=== PATIENT | female | born 1955 | race Caucasian/White ===

== ENCOUNTER 2017-03-21 09:57 | Outpatient (CLI) | payer BC, OTHER ==
[2017-03-21 11:19] LABS: BASOPHILS # (AUTO) 0.1 K/uL (0.0-8.0); BASOPHILS % (AUTO) 0.5 % (0.0-2.0); EOSINOPHILS # (AUTO) 0.2 K/uL (0.0-0.7); EOSINOPHILS % (AUTO) 1.6 % (0.0-7.0); HEMATOCRIT 37.8 % (37-47); HEMOGLOBIN 12.5 G/DL (12.0-16.0); LYMPHOCYTES # (AUTO) 3.4 K/UL (0.8-4.8); LYMPHOCYTES % (AUTO) 29.3 % (20.5-51.5); MEAN CORPUSCULAR HEMOGLOBIN 31.2 UUG (27.0-31.0); MEAN CORPUSCULAR HGB CONC 33 g/dL (32.0-37.0); MEAN CORPUSCULAR VOLUME 94.2 FL (81.0-99.0); NEUTROPHILS # (AUTO) 6.9 K/UL (1.8-8.9); NEUTROPHILS % (AUTO) 59.6 % (38.5-71.5); PLATELET COUNT (AUTO) 281 K/UL (150-450); RED BLOOD CELL COUNT(AUTO) 4.01 MIL/UL (4.2-5.4); WHITE BLOOD COUNT (AUTO) 11.6 K/UL (4.0-11.2)
[2017-03-21 11:50] LABS: THYROID STIMULATING HORMONE 1.134 mIU/mL (0.358-3.740)
[2017-03-21 12:07] LABS: BILIRUBIN,TOTAL 0.5 mg/dL (0.2-1.0); POTASSIUM 3.8 mmol/L (3.5-5.1); TOTAL PROTEIN, SERUM 7.8 g/dL (6.4-8.2)
[2017-03-22 08:06] LABS: FOLLICLE STIMULATION HORMONE 41.4 mIU/mL (.); TRIIODOTHYRONINE, FREE 2.7 pg/mL (2.0-4.4)
[2017-03-22 13:09] LABS: CANCER AG, 125 5.4 U/mL (0.0-38.1); CARBOHYDRATE ANTIGEN, 19-9 6 U/mL (0-35)
[2017-03-23 02:06] LABS: VIT D, 25-HYDROXY 29.9 ng/mL (30.0-100.0)
== END 2017-03-21 23:59 | disposition home or self-care (01) ==
LOC: LAB 09:57
PROVIDERS: ATTEND Obstetrics & Gynecology
DX: N95.9 Unspecified menopausal and perimenopausal disorder (principal); I10 Essential (primary) hypertension
CPT/HCPCS: 36415; 82306; 83001; 83002; 84443; 84481; 85025; 86301; 86677

== ENCOUNTER 2017-04-10 08:12 | Outpatient (CLI) | payer BC, OTHER ==
[2017-04-11 13:05] LABS: *OCCULT BLOOD STOOL NEGATIVE (NEGATIVE)
== END 2017-04-10 23:59 | disposition home or self-care (01) ==
LOC: LAB 08:12
PROVIDERS: ATTEND Internal Medicine Cardiovascular Disease
DX: I10 Essential (primary) hypertension (principal)
CPT/HCPCS: 36415

== ENCOUNTER 2017-06-07 12:11 | Outpatient (CLI) | payer BC, OTHER | END 2017-06-07 23:59 | disposition home or self-care (01) | LOC: RAD 12:11 | DX: M51.37 Other intervertebral disc degeneration, lumbosacral region (principal); M43.16 Spondylolisthesis, lumbar region; M12.88 Other specific arthropathies, not elsewhere classified, other specified site; M48.06 Spinal stenosis, lumbar region; M48.07 Spinal stenosis, lumbosacral region; I70.0 Atherosclerosis of aorta; I51.7 Cardiomegaly; M47.894 Other spondylosis, thoracic region | CPT/HCPCS: 71020; 72110 ==

== ENCOUNTER 2017-06-24 15:30 | Emergency (ER) | payer BC, OTHER ==
[~2017-06-24] VITALS: Ht 162.6 cm; Wt 68.0 kg
--- NOTE | 2017-06-24 16:16 | NUR ---
Patient discharged to home in stable conditon. Written and verbal after care instructions given. Patient verbalizes understanding of instructions.
== END 2017-06-24 16:19 | disposition home or self-care (01) ==
LOC: ER 15:31
DX: M71.21 Synovial cyst of popliteal space [Baker], right knee (principal); I10 Essential (primary) hypertension; K21.9 Gastro-esophageal reflux disease without esophagitis
CPT/HCPCS: A4663

== ENCOUNTER 2017-07-26 11:50 | Outpatient (CLI) | payer BC, OTHER | END 2017-07-26 23:59 | disposition home or self-care (01) | LOC: LAB 11:50 → XRAY 23:59 | PROVIDERS: ATTEND Internal Medicine | DX: M25.561 Pain in right knee (principal); M25.562 Pain in left knee ==

== ENCOUNTER 2017-08-02 07:34 | Outpatient (CLI) | payer BC, OTHER ==
[2017-08-02 08:15] LABS: BASOPHILS % (AUTO) 0.4 % (0.0-2.0); EOSINOPHILS # (AUTO) 0.2 K/uL (0.0-0.7); EOSINOPHILS % (AUTO) 2.2 % (0.0-7.0); HEMATOCRIT 39.6 % (31.2-41.9); HEMOGLOBIN 14.2 g/dL (10.9-14.3); LYMPHOCYTES # (AUTO) 3.8 K/uL (20.0-40.0); LYMPHOCYTES % (AUTO) 41.6 % (20.5-51.5); MEAN CORPUSCULAR HGB CONC 36 g/dL (32.3-35.6); MEAN CORPUSCULAR VOLUME 91.8 fL (75.5-95.3); MONOCYTES # (AUTO) 0.6 K/uL (2.0-10.0); NEUTROPHILS # (AUTO) 4.5 K/uL (1.8-8.9); NEUTROPHILS % (AUTO) 48.8 % (38.5-71.5); PLATELET COUNT (AUTO) 272 K/uL (179-408); RED BLOOD CELL COUNT(AUTO) 4.31 MIL/uL (3.63-4.92); WHITE BLOOD COUNT (AUTO) 9.2 K/uL (3.8-11.8)
[2017-08-02 08:37] LABS: BILIRUBIN,TOTAL 0.4 mg/dL (0.2-1.0); CREATININE 0.5 mg/dL (0.6-1.3); POTASSIUM 3.9 mmol/L (3.5-5.1); TOTAL PROTEIN, SERUM 7.3 g/dL (6.4-8.2)
[2017-08-02 09:09] LABS: THYROID STIMULATING HORMONE 1.611 mIU/mL (0.358-3.740)
[2017-08-02 09:26] LABS: *RHEUMATOID FACTOR SCREEN NEGATIVE (NEGATIVE)
[2017-08-03 05:19] LABS: VIT D, 25-HYDROXY 29.5 ng/mL (30.0-100.0)
[2017-08-03 14:06] LABS: *SJOGREN'S ANTI-SS-A <0.2 AI (0.0-0.9); *SJOGREN'S ANTI-SS-B <0.2 AI (0.0-0.9); *SMITH ANTIBODIES <0.2 AI (0.0-0.9); ANTI-DNA(DS) AB, QN 15 IU/mL (0-9)
== END 2017-08-02 23:59 | disposition home or self-care (01) ==
LOC: LAB 07:34
PROVIDERS: ATTEND Internal Medicine
DX: M25.569 Pain in unspecified knee (principal)
CPT/HCPCS: 36415; 82306; 84443; 85025; 86038; 86140; 86430

== ENCOUNTER → 2018-08-01 | Outpatient (CLI) | payer BC, OTHER | END | disposition home or self-care (01) | LOC: US 14:37 | PROVIDERS: ATTEND Internal Medicine Cardiovascular Disease | DX: R01.1 Cardiac murmur, unspecified (principal); R42 Dizziness and giddiness | CPT/HCPCS: 93880 ==

== ENCOUNTER 2019-01-19 07:08 | Outpatient (CLI) | payer BC, OTHER ==
[2019-01-19 07:43] LABS: BASOPHILS % (AUTO) 0.5 % (0.0-2.0); EOSINOPHILS # (AUTO) 0.2 K/uL (0.0-0.7); EOSINOPHILS % (AUTO) 2.7 % (0.0-7.0); HEMATOCRIT 37.3 % (31.2-41.9); HEMOGLOBIN 12.9 g/dL (10.9-14.3); LYMPHOCYTES # (AUTO) 3.6 K/uL (20.0-40.0); LYMPHOCYTES % (AUTO) 40.9 % (20.5-51.5); MEAN CORPUSCULAR HEMOGLOBIN 32.5 uug (24.7-32.8); MEAN CORPUSCULAR HGB CONC 35 g/dL (32.3-35.6); MEAN CORPUSCULAR VOLUME 93.6 fL (75.5-95.3); MONOCYTES # (AUTO) 0.6 K/uL (2.0-10.0); MONOCYTES % (AUTO) 6.3 % (0.0-11.0); NEUTROPHILS # (AUTO) 4.3 K/uL (1.8-8.9); NEUTROPHILS % (AUTO) 49.6 % (38.5-71.5); PLATELET COUNT (AUTO) 233 K/uL (179-408); RED BLOOD CELL COUNT(AUTO) 3.98 MIL/uL (3.63-4.92); WHITE BLOOD COUNT (AUTO) 8.7 K/uL (3.8-11.8)
[2019-01-19 07:51] LABS: *OCCULT BLOOD STOOL NEGATIVE (NEGATIVE)
[2019-01-19 07:55] LABS: *BILIRUBIN,URIN NEGATIVE (NEGATIVE); *BLOOD, URINE NEGATIVE (NEGATIVE); *CLARITY,URINE CLEAR (CLEAR); *COLOR,URINE DARK YELLOW (YELLOW); *KETONES,URINE NEGATIVE (NEGATIVE); LEUKOCYTE ESTERASE ,URINE NEGATIVE (NEGATIVE); NITRITE, URINE NEGATIVE (NEGATIVE); PH,URINE 7.5 (5.0-8.0); UGLUCOSE NEGATIVE (NEGATIVE)
[2019-01-19 07:59] LABS: THYROID STIMULATING HORMONE 2.093 mIU/mL (0.358-3.740)
[2019-01-19 08:04] LABS: BACTERIA,URINE NONE SEEN /HPF (NONE SEEN); RBC,URINE 0-3 /HPF (0-3); SQUAMOUS EPITHELIAL CELL,UR MODERATE /HPF (NONE SEEN); URINE AMORPHOUS PHOSPHATES FEW /HPF; WBC,URINE 0-3 /HPF (0-3)
[2019-01-19 08:19] LABS: BILIRUBIN,TOTAL 0.4 mg/dL (0.2-1.0); CREATININE 0.5 mg/dL (0.6-1.3); POTASSIUM 3.9 mmol/L (3.5-5.1)
[2019-01-20 12:11] LABS: CANCER AG, 125 3.8 U/mL (0.0-38.1); CARBOHYDRATE ANTIGEN, 19-9 8 U/mL (0-35)
[2019-01-23 19:12] LABS: *VITAMIN D 25-OH VIT D 23 ng/mL (.); *VITAMIN D 25-OH, D2 2.2 ng/mL (.); *VITAMIN D 25-OH, D3 21 ng/mL (.)
== END 2019-01-19 23:59 | disposition home or self-care (01) ==
LOC: LAB 07:08
PROVIDERS: ATTEND Internal Medicine
DX: I10 Essential (primary) hypertension (principal)
CPT/HCPCS: 36415; 84443; 85025; 86301; 86677

== ENCOUNTER 2019-04-03 14:10 | Emergency (ER) | payer BC, OTHER ==
[~2019-04-03] VITALS: Ht 162.6 cm; Wt 72.6 kg
--- NOTE | 2019-04-03 14:58 | NUR ---
Patient discharged to home in stable conditon. Written and verbal after care instructions given. Patient verbalizes understanding of instructions.
== END 2019-04-03 14:58 | disposition home or self-care (01) ==
LOC: ER 14:10
DX: M71.22 Synovial cyst of popliteal space [Baker], left knee (principal); M71.21 Synovial cyst of popliteal space [Baker], right knee; M79.604 Pain in right leg; M79.605 Pain in left leg; I10 Essential (primary) hypertension; K21.9 Gastro-esophageal reflux disease without esophagitis; Z88.8 Allergy status to other drugs, medicaments and biological substances
CPT/HCPCS: A4663

== ENCOUNTER 2019-09-21 09:22 | Emergency (ER) | payer BC, OTHER ==
[~2019-09-21] VITALS: Ht 162.6 cm; Wt 72.6 kg
[2019-09-21 09:30] VITALS: BP 110/73
--- NOTE | 2019-09-21 09:31 | NUR ---
Patient discharged to home in stable conditon. Written and verbal after care instructions given. Patient verbalizes understanding of instructions.
== END 2019-09-21 09:32 | disposition home or self-care (01) ==
LOC: ER 09:22
DX: J20.9 Acute bronchitis, unspecified (principal); I10 Essential (primary) hypertension; K21.9 Gastro-esophageal reflux disease without esophagitis; Z88.8 Allergy status to other drugs, medicaments and biological substances
CPT/HCPCS: A4663

== ENCOUNTER 2020-01-20 12:15 | Emergency (ER) | payer BC, OTHER ==
[~2020-01-20] VITALS: Ht 165.1 cm; Wt 68.0 kg
--- NOTE | 2020-01-20 12:54 | NUR ---
Patient discharged to home in stable condition. Written and verbal after care instructions given. Patient verbalizes understanding of instructions. Stressed follow up or return to ER for worsening s/s.
== END 2020-01-20 12:55 | disposition home or self-care (01) ==
LOC: ER 12:15
DX: J06.9 Acute upper respiratory infection, unspecified (principal); Z20.828 Contact with and (suspected) exposure to other viral communicable diseases; I10 Essential (primary) hypertension
CPT/HCPCS: A4663

== ENCOUNTER 2020-01-27 22:58 | Inpatient (IN) | payer BC, OTHER ==
[~2020-01-27] VITALS: Ht 165.1 cm; Wt 67.6 kg
--- NOTE | 2020-01-27 23:10 | NUR ---
PATIENT WAS MSE BY DR SALVADOR IN ROOM 05A.
[2020-01-27] MEDS ORDERED: MAG HYDROX/AL HYDROX/SIMETH 30 ML LIQUID UDC PO ONE (23:30)
[2020-01-27] MEDS ORDERED: LIDOCAINE VISCUS 2% 15 ML UDC MM ONE (23:30)
[2020-01-27] MEDS ORDERED: LORAZEPAM 0.5 MG TABLET PO ONE (23:30)
[2020-01-27] MEDS ORDERED: DICYCLOMINE HCL LIQ 10 MG/5 ML UDC PO ONE (23:30)
[2020-01-27 23:44] LABS: BASOPHILS % (AUTO) 0.5 % (0.0-2.0); EOSINOPHILS # (AUTO) 0.2 K/uL (0.0-0.7); EOSINOPHILS % (AUTO) 2.1 % (0.0-7.0); HEMATOCRIT 37.6 % (31.2-41.9); HEMOGLOBIN 13.5 g/dL (10.9-14.3); LYMPHOCYTES # (AUTO) 4.6 K/uL (20.0-40.0); LYMPHOCYTES % (AUTO) 43.2 % (20.5-51.5); MEAN CORPUSCULAR HEMOGLOBIN 32.9 uug (24.7-32.8); MEAN CORPUSCULAR HGB CONC 36 g/dL (32.3-35.6); MEAN CORPUSCULAR VOLUME 91.5 fL (75.5-95.3); MONOCYTES # (AUTO) 0.8 K/uL (2.0-10.0); MONOCYTES % (AUTO) 7.2 % (0.0-11.0); PLATELET COUNT (AUTO) 267 K/uL (179-408); RED BLOOD CELL COUNT(AUTO) 4.11 MIL/uL (3.63-4.92); WHITE BLOOD COUNT (AUTO) 10.7 K/uL (3.8-11.8)
[2020-01-27 23:45] LABS: CREATININE 0.6 mg/dL (0.6-1.3)
[2020-01-27 23:56] LABS: BILIRUBIN,DIRECT 0.2 mg/dL (0.0-0.2); BILIRUBIN,TOTAL 0.5 mg/dL (0.2-1.0); TOTAL PROTEIN, SERUM 7.7 g/dL (6.4-8.2)
[2020-01-28] MEDS ORDERED: MAGNESIUM SULFATE/D5W 200 ML ONE (00:43)
[2020-01-28] MEDS ORDERED: MAGNESIUM SULFATE 2 GM in IV DEXTROSE 5% 100 ML IV ONE (00:45)
[2020-01-28] MEDS ORDERED: IV NORMAL SALINE 500 ML IV ONE (00:45)
[2020-01-28] MEDS ORDERED: POTASSIUM CHLORIDE 20 MEQ TAB.PRT.SR PO ONE (00:45)
[2020-01-28 01:37] LABS: CREATININE 0.7 mg/dL (0.6-1.3); POTASSIUM 3.1 mmol/L (3.5-5.1)
--- NOTE | 2020-01-28 02:00 | NUR ---
DR SALVADOR AT BEDSIDE MADE PATIENT AWARE OF TEST RESULTS.
--- NOTE | 2020-01-28 02:09 | NUR ---
[facility] WAS CALLED LEFT MESSAGE WAITING FOR CALLBACK.
--- NOTE | 2020-01-28 02:20 | NUR ---
[facility] CALLED BACK ACCEPTED PATIENT FOR ADMISSION FOR TELE.
--- NOTE | 2020-01-28 02:27 | NUR ---
Received report from ER nurse.
[2020-01-28] MEDS ORDERED: LORAZEPAM 2 MG/1 ML VIAL ONE (02:28)
[2020-01-28] MEDS ORDERED: LORAZEPAM 0.5 MG TABLET PO PRN (02:30)
[2020-01-28] MEDS ORDERED: ONDANSETRON 4 MG/2 ML VIAL IV PRN (02:30)
[2020-01-28] MEDS ORDERED: IV 0.9% SODIUM CHLORID+ 20 KCL 1,000 ML IV ONE (02:30)
[2020-01-28] MEDS ORDERED: HYDROCODONE/APAP 5-325MG TABLET PO PRN (02:30)
[2020-01-28] MEDS ORDERED: MAGNESIUM HYDROXIDE 30 ML LIQUID UDC PO PRN (02:30)
[2020-01-28] MEDS ORDERED: LORAZEPAM 2 MG/1 ML VIAL IV ONE (02:30)
[2020-01-28] MEDS ORDERED: ACETAMINOPHEN 325 MG TABLET PO PRN (02:30)
[2020-01-28 03:15] VITALS: BP 127/47
--- NOTE | 2020-01-28 03:15 | NUR ---
ADMITTING NOTES Patient received into care from ER. Patient is alert and oriented x4 with no complaints of acute distress or discomfort at this time. All pertinent assessments completed. All safety and fall precaution measures are in place. Call light and personal items are within reach at all times. Will continue to monitor and assess.
[2020-01-28 04:15] VITALS: BP 130/49
[2020-01-28] MEDS: PANTOPRAZOLE SODIUM 40 MG TABLET.DR PO SCH (06:11)
[2020-01-28 06:42] LABS: BASOPHILS % (AUTO) 0.5 % (0.0-2.0); EOSINOPHILS # (AUTO) 0.1 K/uL (0.0-0.7); EOSINOPHILS % (AUTO) 1.5 % (0.0-7.0); HEMATOCRIT 36.8 % (31.2-41.9); HEMOGLOBIN 13.2 g/dL (10.9-14.3); LYMPHOCYTES # (AUTO) 3.4 K/uL (20.0-40.0); LYMPHOCYTES % (AUTO) 39.6 % (20.5-51.5); MEAN CORPUSCULAR HEMOGLOBIN 32.9 uug (24.7-32.8); MEAN CORPUSCULAR HGB CONC 36 g/dL (32.3-35.6); MEAN CORPUSCULAR VOLUME 91.5 fL (75.5-95.3); MONOCYTES # (AUTO) 0.7 K/uL (2.0-10.0); MONOCYTES % (AUTO) 8.6 % (0.0-11.0); NEUTROPHILS # (AUTO) 4.3 K/uL (1.8-8.9); NEUTROPHILS % (AUTO) 49.8 % (38.5-71.5); PLATELET COUNT (AUTO) 235 K/uL (179-408); RED BLOOD CELL COUNT(AUTO) 4.02 MIL/uL (3.63-4.92); WHITE BLOOD COUNT (AUTO) 8.6 K/uL (3.8-11.8)
--- NOTE | 2020-01-28 06:56 | NUR ---
Patient sleeping in bed, easy to arouse. Patient has no s/s of acute distress or pain at this time. Patient's IV is intact and patent running with NS with 20meq KCL at 100ml/hour. Vitals are stable. Safety measures in place. Will endorse to the day shift RN accordingly.
[2020-01-28 07:04] LABS: CREATININE 0.6 mg/dL (0.6-1.3); MAGNESIUM 2.2 mg/dL (1.8-2.4); PHOSPHOROUS 3.1 mg/dL (2.5-4.9); POTASSIUM 3.9 mmol/L (3.5-5.1)
[2020-01-28 07:27] LABS: THYROID STIMULATING HORMONE 2.417 mIU/mL (0.358-3.740)
--- NOTE | 2020-01-28 07:30 | NUR ---
Received pt in bed asleep but arousable to name, alert and oriented. On RA with no complaints of SOB and distress at this time. On tele SR. IV on left AC infusing NS 20meq @ 100cc. Call light and belongings within reach. Bed locked in lowest position with siderails 2x up. Will continue to monitor
[2020-01-28] MEDS ORDERED: ASPI-1169 PO (09:38)
[2020-01-28] MEDS ORDERED: HYDR25TA4 PO (09:38)
[2020-01-28] MEDS ORDERED: OMEP40CA13 PO (09:38)
[2020-01-28] MEDS ORDERED: SIMV80TA90 PO (10:01)
[2020-01-28] MEDS ORDERED: DILT180C66 PO (10:01)
[2020-01-28] MEDS ORDERED: OLME5TAB3 PO (10:01)
[2020-01-28] MEDS ORDERED: MULT-1201 PO (10:03)
[2020-01-28] MEDS ORDERED: OMEG-88 PO (10:03)
[2020-01-28 11:30] VITALS: BP 127/52
[2020-01-28] MEDS ORDERED: SIMETHICONE 40 MG/0.6 ML, 30ML BOTTLE PO PRN (14:15)
[2020-01-28] MEDS ORDERED: SIMETHICONE 80 MG TAB.CHEW PO PRN (14:45)
[2020-01-28 15:49] VITALS: BP 106/52
--- NOTE | 2020-01-28 16:14 | NUR ---
urine specimen sent
[2020-01-28 16:23] LABS: *BILIRUBIN,URIN NEGATIVE (NEGATIVE); *CLARITY,URINE CLEAR (CLEAR); *COLOR,URINE LIGHT YELLOW (YELLOW); *KETONES,URINE NEGATIVE (NEGATIVE); *UROBILINOGEN,URINE 0.2 E.U./dl (NORMAL); LEUKOCYTE ESTERASE ,URINE NEGATIVE (NEGATIVE); NITRITE, URINE NEGATIVE (NEGATIVE); PH,URINE 7.5 (5.0-8.0); UGLUCOSE NEGATIVE (NEGATIVE)
[2020-01-28 16:30] LABS: *BLOOD, URINE TRACE (NEGATIVE); RBC,URINE 0-3 /HPF (0-3); WBC,URINE NONE SEEN /HPF (0-3)
[2020-01-28 16:31] LABS: SQUAMOUS EPITHELIAL CELL,UR FEW /HPF (NONE SEEN)
[2020-01-28 16:32] LABS: *URINE TOTAL PROTEIN RANDOM < 6.0 mg/dL (<150/24HR)
--- NOTE | 2020-01-28 18:49 | NUR ---
Patient stable throughout the day. On RA and No complaints of pain, SOB or any distress. HR 48-57s but no symptoms. Pt able to ambulate to bathroom with steady gait. IV NS 20 mE2 KCl discontinued. Bed locked in lowest position with siderails 2x up, call light and phone within reach. Will endorse
--- NOTE | 2020-01-28 19:20 | NUR ---
Received patient lying in bed. AAOX4. In no acute distress. Denies any pain or SOB. Sinus era on tele at 55/min with 1st degree AV Block. Left AC intact and patent. Needs assessed and attended to. Safety measure initiated and call gifford within reached.
--- NOTE | 2020-01-28 20:46 | NUR ---
Informed [employer]ILINGS MAN Keo regarding patient BP 108/52, HR 52, with order to hold Cardizem 360mg PO tonight. Order carried out.
[2020-01-28 20:50] VITALS: BP 108/52
[2020-01-28] MEDS ORDERED: SIMVASTATIN 20 MG TABLET PO SCH (21:00)
[2020-01-28] MEDS ORDERED: DILTIAZEM HCL CD 180 MG CAP.SR.24H PO SCH (21:00)
[2020-01-29 00:47] VITALS: BP 116/47
[2020-01-29] MEDS: PANTOPRAZOLE SODIUM 40 MG TABLET.DR PO SCH (06:00)
--- NOTE | 2020-01-29 06:07 | NUR ---
AAOX4. In no acute distress. Denies any pain or SOB. Sinus era on tele at 56/min with 1st degree AV Block. Left AC intact and patent. Safety measure maintained and call gifford within reached.
[2020-01-29 06:44] LABS: BASOPHILS # (AUTO) 0.1 K/uL (0.0-8.0); LYMPHOCYTES # (AUTO) 3.3 K/uL (20.0-40.0); MONOCYTES # (AUTO) 0.7 K/uL (2.0-10.0); NEUTROPHILS % (AUTO) 48.5 % (38.5-71.5)
[2020-01-29 06:57] LABS: BILIRUBIN,TOTAL 0.4 mg/dL (0.2-1.0); CREATININE 0.6 mg/dL (0.6-1.3); MAGNESIUM 2.7 mg/dL (1.8-2.4); POTASSIUM 4.1 mmol/L (3.5-5.1); TOTAL PROTEIN, SERUM 6.6 g/dL (6.4-8.2)
[2020-01-29 06:58] LABS: BASOPHILS % (AUTO) 0.9 % (0.0-2.0); EOSINOPHILS # (AUTO) 0.1 K/uL (0.0-0.7); EOSINOPHILS % (AUTO) 1.7 % (0.0-7.0); HEMATOCRIT 37.6 % (31.2-41.9); HEMOGLOBIN 13.1 g/dL (10.9-14.3); LYMPHOCYTES % (AUTO) 40.8 % (20.5-51.5); MEAN CORPUSCULAR HEMOGLOBIN 32.7 uug (24.7-32.8); MEAN CORPUSCULAR HGB CONC 35 g/dL (32.3-35.6); MONOCYTES % (AUTO) 8.1 % (0.0-11.0); NEUTROPHILS # (AUTO) 3.9 K/uL (1.8-8.9); PLATELET COUNT (AUTO) 241 K/uL (179-408); WHITE BLOOD COUNT (AUTO) 8.1 K/uL (3.8-11.8)
[2020-01-29] MEDS ORDERED: LOSARTAN POTASSIUM 50 MG TABLET PO SCH (09:00)
[2020-01-29] MEDS ORDERED: Medication Not On Formulary EA (Olmesartan Medoxomil (Benicar) 40 MG) PO SCH (09:00)
[2020-01-29] MEDS ORDERED: Medication Not On Formulary EA (Multivitamin/Iron/Folic Acid (Centrum Adults Tablet) 1 E PO SCH (09:00)
[2020-01-29] MEDS ORDERED: MULTIVIT, IRON, MIN NO. 8, FA TABLET PO SCH (09:00)
[2020-01-29] MEDS ORDERED: ASPIRIN 81 MG TAB.CHEW PO SCH (09:00)
[2020-01-29] MEDS ORDERED: OMEGA-3 FATTY ACIDS/FISH OIL CAPSULE PO SCH (09:00)
[2020-01-29] MEDS ORDERED: Medication Not On Formulary EA (Omeprazole 40 MG) PO SCH (09:00)
[2020-01-29 11:33] VITALS: BP 171/86
--- NOTE | 2020-01-29 13:49 | NUR ---
dc orders received noted and carried out,dc instruction and education given to the pt .pt already make the appointment with the susan oliver per md orders,pt left the facility via private car in stable condition
== END 2020-01-29 14:30 | disposition home or self-care (01) | DRG 645 ==
LOC: ER 23:00 → TELE3 01-28 02:54
PROVIDERS: ADMIT Student in an Organized Health Care Education/Training Program; ATTEND Student in an Organized Health Care Education/Training Program
DX: E22.2 Syndrome of inappropriate secretion of antidiuretic hormone (principal); K21.9 Gastro-esophageal reflux disease without esophagitis; I10 Essential (primary) hypertension; Z72.0 Tobacco use; F41.9 Anxiety disorder, unspecified; Z79.899 Other long term (current) drug therapy; R00.1 Bradycardia, unspecified; I44.0 Atrioventricular block, first degree; T50.2X5A Adverse effect of carbonic-anhydrase inhibitors, benzothiadiazides and other diuretics, initial encounter; Y92.009 Unspecified place in unspecified non-institutional (private) residence as the place of occurrence of the external cause; E87.6 Hypokalemia
CPT/HCPCS: 36415; 70030-TC; 71045; 83735; 84100; 84156; 84300; 84443; 85025; 93005; G0378; G0480; J2060; J3475; J7040; J7060

== ENCOUNTER 2020-02-18 07:54 | Emergency (ER) | payer BC, OTHER ==
[~2020-02-18] VITALS: Ht 165.1 cm; Wt 68.0 kg
[~2020-02-18 07:54] MED LIST: ASPI-1169 PO; MULT-1201 PO; OLME5TAB3 PO; OMEG-88 PO; OMEP40CA13 PO; SIMV80TA90 PO
[2020-02-18] MEDS ORDERED: TETRACAINE HCL 0.5% OPHT DROP 2 ML BOTTLE ONE (08:02)
[2020-02-18] MEDS ORDERED: FLUORESCEIN SODIUM 1 MG STRIP ONE (08:03)
[2020-02-18] MEDS ORDERED: FLUOROMETHOLONE 0.1% OP ONE (08:15)
[2020-02-18] MEDS ORDERED: TETRACAINE HCL 0.5% OPHT DROP 2 ML BOTTLE OP ONE (08:15)
--- NOTE | 2020-02-18 08:22 | NUR ---
ERMD at bedside for visual examination of eye
[2020-02-18] MEDS ORDERED: FLUORESCEIN SODIUM 1 MG STRIP OP ONE (08:30)
[2020-02-18 08:52] VITALS: BP 131/89
== END 2020-02-18 08:53 | disposition home or self-care (01) ==
LOC: ER 07:54
DX: H10.9 Unspecified conjunctivitis (principal); I10 Essential (primary) hypertension; K21.9 Gastro-esophageal reflux disease without esophagitis; Z79.82 Long term (current) use of aspirin; Z79.899 Other long term (current) drug therapy
CPT/HCPCS: A4663

== ENCOUNTER 2020-02-19 08:06 | Outpatient (CLI) | payer BC, OTHER ==
[2020-02-19 09:47] LABS: BASOPHILS % (AUTO) 0.5 % (0.0-2.0); EOSINOPHILS # (AUTO) 0.1 K/uL (0.0-0.7); EOSINOPHILS % (AUTO) 1.4 % (0.0-7.0); HEMATOCRIT 42.1 % (31.2-41.9); HEMOGLOBIN 14.4 g/dL (10.9-14.3); LYMPHOCYTES # (AUTO) 2.7 K/uL (20.0-40.0); LYMPHOCYTES % (AUTO) 35.4 % (20.5-51.5); MEAN CORPUSCULAR HEMOGLOBIN 32.7 uug (24.7-32.8); MEAN CORPUSCULAR HGB CONC 34 g/dL (32.3-35.6); MEAN CORPUSCULAR VOLUME 95.4 fL (75.5-95.3); MONOCYTES # (AUTO) 0.4 K/uL (2.0-10.0); MONOCYTES % (AUTO) 4.9 % (0.0-11.0); NEUTROPHILS # (AUTO) 4.5 K/uL (1.8-8.9); NEUTROPHILS % (AUTO) 57.8 % (38.5-71.5); PLATELET COUNT (AUTO) 263 K/uL (179-408); RED BLOOD CELL COUNT(AUTO) 4.42 MIL/uL (3.63-4.92); WHITE BLOOD COUNT (AUTO) 7.7 K/uL (3.8-11.8)
[2020-02-19 09:52] LABS: BILIRUBIN,TOTAL 0.5 mg/dL (0.2-1.0); CREATININE 0.7 mg/dL (0.6-1.3); MAGNESIUM 1.9 mg/dL (1.8-2.4); PHOSPHOROUS 3.8 mg/dL (2.5-4.9); POTASSIUM 3.2 mmol/L (3.5-5.1); TOTAL PROTEIN, SERUM 7.9 g/dL (6.4-8.2)
[2020-02-19 11:43] LABS: URIC ACID 3.8 mg/dL (2.6-6.0)
[2020-02-19 12:04] LABS: THYROID STIMULATING HORMONE 1.566 mIU/mL (0.358-3.740)
[2020-02-19 14:12] LABS: *BILIRUBIN,URIN NEGATIVE (NEGATIVE); *BLOOD, URINE NEGATIVE (NEGATIVE); *COLOR,URINE YELLOW (YELLOW); *KETONES,URINE NEGATIVE (NEGATIVE); *UROBILINOGEN,URINE 0.2 E.U./dl (NORMAL); LEUKOCYTE ESTERASE ,URINE NEGATIVE (NEGATIVE); NITRITE, URINE NEGATIVE (NEGATIVE); PH,URINE 6.5 (5.0-8.0); UGLUCOSE NEGATIVE (NEGATIVE)
[2020-02-19 14:18] LABS: *CLARITY,URINE HAZY (CLEAR)
[2020-02-19 14:24] LABS: BACTERIA,URINE NONE SEEN /HPF (NONE SEEN); SQUAMOUS EPITHELIAL CELL,UR FEW /HPF (NONE SEEN); WBC,URINE 0-3 /HPF (0-3)
[2020-02-19 14:25] LABS: MUCUS,URINE MODERATE /LPF (0-FEW); URINE AMORPHOUS PHOSPHATES FEW /HPF
[2020-02-20 05:06] LABS: LUTEINIZING HORMONE 14.3 mIU/mL (.)
[2020-02-20 08:07] LABS: TRIIODOTHYRONINE, FREE 3.3 pg/mL (2.0-4.4)
== END 2020-02-19 23:59 | disposition home or self-care (01) ==
LOC: LAB 08:06
PROVIDERS: ATTEND Internal Medicine
DX: R31.1 Benign essential microscopic hematuria (principal)
CPT/HCPCS: 36415; 82306; 83001; 83002; 83690; 83735; 84100; 84443; 84481; 84550; 85025; 86301

== ENCOUNTER 2020-02-23 09:12 | Emergency (ER) | payer BC, OTHER ==
[~2020-02-23] VITALS: Ht 165.1 cm; Wt 63.5 kg
== END 2020-02-23 09:33 | disposition home or self-care (01) ==
LOC: ER 09:12
DX: H10.212 Acute toxic conjunctivitis, left eye (principal); I10 Essential (primary) hypertension; K21.9 Gastro-esophageal reflux disease without esophagitis; Z79.899 Other long term (current) drug therapy
CPT/HCPCS: A4663

== ENCOUNTER 2020-03-08 14:21 | Emergency (ER) | payer BC, OTHER ==
[~2020-03-08] VITALS: Ht 165.1 cm; Wt 68.0 kg
--- NOTE | 2020-03-08 14:28 | NUR ---
Dr. Paiz at bedside for MSE
[2020-03-08] MEDS ORDERED: LORAZEPAM 0.5 MG TABLET PO ONE (14:45)
[2020-03-08] MEDS ORDERED: LORAZEPAM 1 MG TABLET ONE (14:46)
[2020-03-08 15:06] LABS: BASOPHILS % (AUTO) 0.3 % (0.0-2.0); EOSINOPHILS % (AUTO) 0.5 % (0.0-7.0); HEMATOCRIT 41.4 % (31.2-41.9); HEMOGLOBIN 14.2 g/dL (10.9-14.3); LYMPHOCYTES # (AUTO) 3.1 K/uL (20.0-40.0); LYMPHOCYTES % (AUTO) 31.9 % (20.5-51.5); MEAN CORPUSCULAR HEMOGLOBIN 32.1 uug (24.7-32.8); MEAN CORPUSCULAR HGB CONC 34 g/dL (32.3-35.6); MEAN CORPUSCULAR VOLUME 93.7 fL (75.5-95.3); MONOCYTES # (AUTO) 0.7 K/uL (2.0-10.0); MONOCYTES % (AUTO) 7.5 % (0.0-11.0); NEUTROPHILS # (AUTO) 5.9 K/uL (1.8-8.9); NEUTROPHILS % (AUTO) 59.8 % (38.5-71.5); PLATELET COUNT (AUTO) 253 K/uL (179-408); RED BLOOD CELL COUNT(AUTO) 4.42 MIL/uL (3.63-4.92); WHITE BLOOD COUNT (AUTO) 9.8 K/uL (3.8-11.8)
[2020-03-08 15:27] LABS: BILIRUBIN,TOTAL 0.5 mg/dL (0.2-1.0); CREATININE 0.7 mg/dL (0.6-1.3); POTASSIUM 3.4 mmol/L (3.5-5.1); TOTAL PROTEIN, SERUM 7.9 g/dL (6.4-8.2)
[2020-03-08] MEDS ORDERED: POTASSIUM CHLORIDE 20 MEQ TAB.PRT.SR ONE (15:44)
[2020-03-08] MEDS ORDERED: POTASSIUM CHLORIDE 20 MEQ TAB.PRT.SR PO ONE (15:45)
--- NOTE | 2020-03-08 15:59 | NUR ---
Patient discharged to home in stable condition. Written and verbal after care instructions given. Patient verbalizes understanding of instructions. Stressed follow up or return to ER for worsening s/s. Patient's will be driving patient home today.
[2020-03-08 16:00] VITALS: BP 152/90
== END 2020-03-08 16:00 | disposition home or self-care (01) ==
LOC: ER 14:21
DX: F41.9 Anxiety disorder, unspecified (principal); E87.6 Hypokalemia; I10 Essential (primary) hypertension; E78.5 Hyperlipidemia, unspecified; K21.9 Gastro-esophageal reflux disease without esophagitis; Z79.82 Long term (current) use of aspirin; Z79.899 Other long term (current) drug therapy
CPT/HCPCS: 36415; 85025; 93005; A4663

== ENCOUNTER 2020-03-28 08:06 | Outpatient (CLI) | payer BC, OTHER | END 2020-03-28 23:59 | disposition home or self-care (01) | LOC: US 08:06 | PROVIDERS: ATTEND Internal Medicine | DX: K76.0 Fatty (change of) liver, not elsewhere classified (principal) | CPT/HCPCS: 76700 ==

== ENCOUNTER → 2020-04-15 | Outpatient (CLI) | payer BC, OTHER ==
[2020-04-15 11:28] LABS: BILIRUBIN,TOTAL 0.5 mg/dL (0.2-1.0); CREATININE 0.6 mg/dL (0.6-1.3); POTASSIUM 4.2 mmol/L (3.5-5.1)
== END | disposition home or self-care (01) ==
LOC: LAB 10:21
DX: E87.6 Hypokalemia (principal); K11.7 Disturbances of salivary secretion
CPT/HCPCS: 85613